=== PATIENT | male | born 1995 | race Caucasian/White ===

== ENCOUNTER 2019-05-18 14:34 | Emergency (ER) | payer MEDICAID ==
[~2019-05-18] VITALS: Ht 188 cm; Wt 75.0 kg
[~2019-05-18 14:34] MED LIST: ALBU6.7H9 INH; CLOT12CR TP; NO HOME MEDS; PERM60CR4 TP
[2019-05-18 14:40] VITALS: BP 109/65
--- NOTE | 2019-05-18 15:09 | NUR ---
DR RICH AT BEDSIDE ASSESSING THE PT.
[2019-05-18] MEDS ORDERED: BENZ-16 PO (15:18)
--- NOTE | 2019-05-18 15:20 | NUR ---
THROAT SWAB CULTURE SENT TO THE LAB.
== END 2019-05-18 16:07 | disposition home or self-care (01) ==
LOC: ER 14:35
DX: J02.9 Acute pharyngitis, unspecified (principal); R51 Headache; Z79.899 Other long term (current) drug therapy
CPT/HCPCS: 87081; 87880; 99283